=== PATIENT | female | born 1995 | race Hispanic/Latino ===

== ENCOUNTER → 2023-02-01 09:42 | Outpatient (CLI) | payer OTHER, SELFPAY ==
--- NOTE | 2023-02-01 09:43 | DI.US.S_ITS ---
PROCEDURE: US OB <= 14 WEEKS FETUS INDICATIONS: DATING AND VIABILITY OUTSIDE/PRIOR DATING DATA: Last menstrual period (LMP): 11/01/2022. LMP-based estimated date of delivery (GUZMAN): 08/08/2023. First dating scan (date and location): 02/01/2023. Estimated date of delivery (GUZMAN) from first dating scan: 09/06/2023. The calculations are made using the working GUZMAN of 09/06/2023. TECHNIQUE: Real-time scanning was performed of the fetus and maternal pelvic organs, with image documentation. Endovaginal scanning was also performed to better visualize the fetus and maternal ovaries. COMPARISON: None. FINDINGS: Embryo: Cedro-rump length 2.3 cm corresponds with a 9 week 0 day gestation. No subchorionic bleed Heart rate: 178 beats per minute Maternal organs: Ovaries show probable corpus luteum cyst on the right measuring 2.3 x 2.5 x 2.0 cm. Left ovary unremarkable. IMPRESSION: Single live intrauterine corresponds with a 9 week 0 day gestatio Approved by: Jake Roque M.D. on 02/01/2023 at 16:38 n
== END ==
PROVIDERS: Referring Provider Obstetrics & Gynecology; Visit Provider Obstetrics & Gynecology
DX: Z3A.09 9 weeks gestation of pregnancy; Z34.81 Encounter for supervision of other normal pregnancy, first trimester
CPT/HCPCS: 76801; 76830; 93975

== ENCOUNTER → 2023-02-08 15:19 | Outpatient (CLI) | payer OTHER, SELFPAY ==
[2023-02-08 16:02] LABS: Specimen Label NATERA
[2023-02-08 16:16] LABS: Add Manual Diff / Slide Review NO; Basophils Absolute Auto 0 /uL (0-100); Basophils Percent Auto 0.3 % (0-2); Eosinophils Absolute Auto 100 /uL (0-450); Eosinophils Percent Auto 0.9 % (2-4); Hematocrit 33.3 % (36-46); Hemoglobin 11.4 g/dL (12.0-16.0); Lymphocytes Absolute Auto 1800 /uL (1100-4500); Lymphocytes Percent Auto 27.5 % (25-40); Mean Corpuscular HGB Conc 34.2 % (30-36); Mean Corpuscular Hemoglobin 29.1 PG (26-34); Mean Corpuscular Volume 85.2 fL (80-100); Monocytes Absolute Auto 400 /uL (0-900); Monocytes Percent Auto 5.5 % (3-14); Neutrophils Absolute Auto 4300 /uL (1500-7000); Neutrophils Percent Auto 65.8 % (50-75); Platelet Count 233 X10^3/uL (150-400); Red Blood Cell Count 3.91 X10^6/uL (4.0-5.2); Red Cell Distribution Width 14.2 % (11.6-14.8); White Blood Cell Count 6.6 X10^3/uL (4.5-11.0)
[2023-02-08 17:00] LABS: Alanine Aminotransferase 14 IU/L (<35); Aspartate Aminotransferase 25 IU/L (14-36); BUN Creatinine Ratio 16.1 (6-22); Blood Urea Nitrogen 9 mg/dL (7-17); Estimated Glomerular Filt Rate > 60 mL/min (>60)
[2023-02-09 09:17] LABS: RPR Screen Non Reactive (Non Reactive); Varicella IgG Antibody 171 index (Immune >165)
[2023-02-11 15:15] LABS: Hepatitis B Surface Antigen NEGATIVE s/c (NEGATIVE)
[2023-02-11 15:26] LABS: HIV 1 & 2 Ab/Ag 4th Gen Combo NEGATIVE (NEGATIVE); Hep C Virus Ab w/Reflex Quant NEGATIVE s/c (NEGATIVE)
== END ==
PROVIDERS: Referring Provider Obstetrics & Gynecology; Visit Provider Obstetrics & Gynecology
DX: Z34.81 Encounter for supervision of other normal pregnancy, first trimester (principal)
CPT/HCPCS: 36415; 80055; 82565; 84450; 84460; 84520; 84550; 86787; 86803; 86850; 86900; 86901; 87077; 87086; 87186; 87389

== ENCOUNTER → 2023-03-08 09:42 | Outpatient (CLI) | payer OTHER, SELFPAY ==
[2023-03-15 15:24] LABS: AFP Value 12.2 ng/mL (.); Gest Age on Col Date 18.1 weeks (.); Gestational Age EDD (.); Insulin Dep Diabetes No (.); OSBR Risk 1IN 10000 (.); Results Report (.); Test Results *Screen Negative* (.)
== END ==
PROVIDERS: Referring Provider Specialist; Visit Provider Specialist
DX: Z34.82 Encounter for supervision of other normal pregnancy, second trimester (principal); Z3A.18 18 weeks gestation of pregnancy
CPT/HCPCS: 36415; 82105

== ENCOUNTER → 2023-04-18 17:01 | Outpatient (CLI) | payer OTHER, SELFPAY | PROVIDERS: Visit Provider Obstetrics & Gynecology | DX: R82.998 Other abnormal findings in urine (principal); R31.9 Hematuria, unspecified | CPT/HCPCS: 87077; 87086; 87186 ==

== ENCOUNTER → 2023-04-23 16:37 | Outpatient (CLI) | payer OTHER, SELFPAY ==
--- NOTE | 2023-04-23 16:39 | DI.US.S_ITS ---
PROCEDURE: US OB >= 14 WEEKS FETUS INDICATIONS: 20 WEEK ANATOMY OUTSIDE/PRIOR DATING DATA: Last menstrual period (LMP): 11/01/2022. LMP-based estimated date of delivery (GUZMAN): 08/08/2023. First dating scan (date and location): 02/01/2023. Estimated date of delivery (GUZMAN) from first dating scan: 09/06/2023 The calculations are made using the working GUZMAN of 09/06/2023. TECHNIQUE: Real-time scanning was performed of the fetus, with image documentation and biometric measurements. Endovaginal scanning: None COMPARISON: None. FINDINGS: General: A single living intrauterine gestation is present. Presentation: Cephalic. Placenta: Placental position is anterior , without previa. Amniotic fluid index: 11.4 cm, normal range is 5-24 cm. Single deepest vertical pocket is 3.9 cm. heart rate: 159 beats per minute. Maternal cervical canal: 3.8 cm long. Normal lower limit is 2.5 cm. biometrics: Biparietal diameter: 4.9 cm, 20 week 5 day Head circumference: 18.1 cm, 20 week 5 day Abdominal circumference: 15.6 cm, 20 week 6 day Femur length: 3.4 cm, 20 week 5 day Clinically estimated gestational age: 20 week 4 day Composite gestational age from present scan: 20 week 5 day Estimated weight and percentile: 378 g, 58 percentile Anatomic survey: Neuro: Ventricles are non-dilated at less than 10 mm. Cisterna magna is normal at 3-11 mm. Cerebellum is normal in size and morphology. Nuchal skin fold: Normal at less than 6 mm between 14-21 weeks gestational age. Face: Nose and lips, facial profile are normal. Spine: No evidence for spina bifida. Heart: 4-chambered heart is present, with normal ventricular outflow tracts. Diaphragm: Diaphragm is intact. Stomach: Left-sided stomach is present. Kidneys: No hydronephrosis. Normal is less than 5 mm in 2nd trimester, less than 7 mm in 3rd trimester. Cord: 3-vessel cord has orthotopic insertion. Bladder: Normal in size. Extremities: All 4 extremities identified. IMPRESSION: Single live intrauterine consistent with 20 week 5 day gestation by current ultrasound. Normal anatomic survey Approved by: Jake Roque M.D. on 04/24/2023 at 14:00
== END ==
PROVIDERS: Referring Provider Specialist; Visit Provider Specialist
DX: Z34.82 Encounter for supervision of other normal pregnancy, second trimester (principal); Z3A.20 20 weeks gestation of pregnancy
CPT/HCPCS: 76811; 76817

== ENCOUNTER → 2023-06-13 14:47 | Outpatient (CLI) | payer OTHER, SELFPAY ==
[2023-06-13 16:52] LABS: Hematocrit 33.6 % (36-46); Hemoglobin 11.5 g/dL (12.0-16.0)
[2023-06-13 17:25] LABS: GTT (PREG) 1 Hour PP 50gm Dose 61 mg/dL (76-139)
== END ==
PROVIDERS: Referring Provider Obstetrics & Gynecology; Visit Provider Obstetrics & Gynecology
DX: Z34.82 Encounter for supervision of other normal pregnancy, second trimester (principal); Z3A.26 26 weeks gestation of pregnancy; R82.998 Other abnormal findings in urine
CPT/HCPCS: 36415; 82950; 85014; 85018; 86850; 87086

== ENCOUNTER → 2023-08-09 10:23 | Outpatient (CLI) | payer OTHER, SELFPAY ==
[2023-08-10 08:43] LABS: Strep Grp B PCR NEG for Grp B Strep
== END ==
PROVIDERS: Visit Provider Student in an Organized Health Care Education/Training Program
DX: Z34.83 Encounter for supervision of other normal pregnancy, third trimester (principal); Z3A.36 36 weeks gestation of pregnancy
CPT/HCPCS: 87653

== ENCOUNTER → 2023-08-30 16:40 | Outpatient (CLI) | payer OTHER, SELFPAY | PROVIDERS: Visit Provider Obstetrics & Gynecology | DX: R82.998 Other abnormal findings in urine (principal) | CPT/HCPCS: 87086 ==

== ENCOUNTER 2023-09-02 19:30 | Inpatient (IN) | payer OTHER, SELFPAY ==
[2023-09-02 20:03] VITALS: BP 115/58
--- NOTE | 2023-09-02 20:19 | PM.OBHP.1 ---
OB HPI Date/Time Date of admission: 09/02/23 Date Patient Seen: 09/03/23 Time Patient Seen: 04:40 History of Present Condition Chief complaint: IUP, 39+3 wks, Rh Neg, GBS Neg, elective induction : 3 Para: 2 Estimated Date of Delivery: 09/06/23 Estimated Gestational Age (weeks): 39+3 Narrative: Shani Hsu is a 28 year old , admitted at 39+ 2 weeks gestational age for elective induction due to her her 's imminent deployment. Patient's course has been largely uneventful with solid early dating and appropriate milestones throughout. GBS is negative. Indications Indication for induction OB: other (Elective, due to patient 's imminent deployment) History of Present care: good care Dating criteria: LMP confirmed by 1st trimester US Ultrasounds: normal 1st trimester US and normal mid trimester US Obstetrical complications: none Medical complications: none Preadmission Labs Blood type: 0 (-) negative -: Antibody screen: negative (06/13/2023, prior to RhoGAM), GBS status: negative, HBsAG: negative, HIV: negative and RPR/VDLR: negative -: Chlamydia screen: not detected and Gonorrhea screen: not detected -: Rubella: immune and Varicella: immune HCT: 33.6 HCAB: negative PAP: Normal Quad screen: Normal (AFP testing negative) Cell-free DNA: Low risk female 1 hr GTT: 1 Prior (ies) History: x 2 Evaluation Evaluation Baseline heart rate: 145 Variability: Moderate (11-25) monitor accelerations: Present Monitor Decelerations: Absent Contraction Frequency (minutes): 6 Uterine Contraction Intensity: Mild Category of Tracing: Reactive Status: Category l Dilation (cm): 10 Effacement (%): 100 Dilation: Closed Effacement: >/=80% station: +2 Position of cervix: anterior Consistency: soft Mullen score: 10 PFSH Medical History (Updated 09/02/23 @ 11:23 by Wesley Harmon MD) PIH ( induced hypertension) Migraine Eczema Surgical History (Updated 01/31/23 @ 11:09 by Glo Beebe RN) No pertinent past surgical history Family History (Updated 01/31/23 @ 11:11 by Glo Beebe RN) Grandmother Diabetes mellitus Family/Other Diabetes mellitus Father Family estrangement Social History marital status: number of children: 2 household members: spouse and children lives independently: Yes caregiver/support person: Yes housing: house pets and animals: Yes (bird, dogs; manages bird cage) education level: college (associate's degree) occupational status: unemployed current occupational exposures/hazards: No special yana needs: No travel history: recent (domestic only) seatbelt use: always helmet use: Yes water heater temp set < 120 deg: Yes working smoke detector in home: Yes fire extinguisher in home: Yes carbon monox detector in home: Yes firearms in home: No do you feel safe at home: Yes Smoking Status: Never smoker second hand exposure: No alcohol intake: never substance use type: does not use during the past year weight has: increased > 10 lbs well-balanced diet: daily or most days daily servings fruits/ve-4 caffeine: Yes (rarely) Type(s) of exercise: walking frequency: daily duration: 15-30 minutes/day Meds Home Medications and Allergies Home Medications Medication Instructions Recorded Confirmed Type [id number] 400 mcg-om3 35 mg-dha 25 tab PO 01/31/23 08/30/23 History mg-epa 5 mg-fish oil chewable tablet sumatriptan succinate 50 mg tablet See Rx Instructions PO .COMPLEX 03/08/23 08/30/23 Rx Migraine #20 tabs Allergies Allergy/AdvReac Type Severity Reaction Status Date / Time No Known Drug Allergies Allergy Unverified 08/30/23 16:11 Review of Systems Review of Systems Narrative: Problem-specific ROS positives included in HPI OB Exam Vital signs Blood Pressure: 115/58 Pulse Rate: 81 Temperature: 97.0 F HENMT Head: normal to inspection, normocephalic and atraumatic Eyes General: appearance normal, both eyes and all related structures Resp Effort & Inspection: normal respiratory effort and able to speak in complete sentences Auscultation: clear to auscultation bilaterally Cardio Rate: regular rate Rhythm: regular rhythm Heart Sounds: S1 normal, S2 normal and no murmurs Extremities Lower extremity: Yes normal to inspection GI Inspection: normal to inspection Palpation: Yes soft and Yes no hepatosplenomegaly Uterus Location (Fundal Height): 38 Presentation: vertex Estimated Weight (lbs): 8 Objective Labs 09/02/23 20:30 Assessment and Plan Assessment and Plan Assessment and Plan narrative: ASSESSMENT 1. Intrauterine , 39+ 3 weeks gestational age 2. History of gestational hypertension with prior 3. Rh-negative status 4. GBS negative status PLAN 1. Admit for elective induction at patient request due to her 's eminent deployment 2. See admission orders
[2023-09-02 20:51] VITALS: BP 115/58; PULSE 81; TEMP 36.1
[2023-09-02 21:12] LABS: Add Manual Diff / Slide Review NO; Basophils Absolute Auto 0 /uL (0-100); Basophils Percent Auto 0.4 % (0-2); Eosinophils Absolute Auto 100 /uL (0-450); Hematocrit 30.7 % (36-46); Hemoglobin 10.6 g/dL (12.0-16.0); Lymphocytes Absolute Auto 1800 /uL (1100-4500); Lymphocytes Percent Auto 27.3 % (25-40); Mean Corpuscular HGB Conc 34.4 % (30-36); Mean Corpuscular Hemoglobin 28.8 PG (26-34); Mean Corpuscular Volume 83.8 fL (80-100); Monocytes Absolute Auto 500 /uL (0-900); Monocytes Percent Auto 6.8 % (3-14); Neutrophils Absolute Auto 4300 /uL (1500-7000); Neutrophils Percent Auto 64.5 % (50-75); Platelet Count 249 X10^3/uL (150-400); Red Blood Cell Count 3.67 X10^6/uL (4.0-5.2); White Blood Cell Count 6.6 X10^3/uL (4.5-11.0)
[2023-09-02] MEDS: fentaNYL 100 MCG/2 ML INJ 50 MCG IV (21:55)
[2023-09-02] MEDS: LACTATED RINGERS 1,000 ML 100 ML IV (22:27)
[2023-09-02] MEDS: OXYTOCIN PREMIX 30 UNIT/500 ML PLAST..BAG IV (22:35)
--- NOTE | 2023-09-03 02:48 | PM.AN.REGBLK ---
Regional Block Pre-procedure PMH/ROS narrative: term elective IOL, no medical or obstetric complications. BMI 39. ASA Class: II Labs: Hct 30.7 % (36-46) L 09/02/23 20:30 Plt Count 249 X10^3/uL (150-400) 09/02/23 20:30 Medications: Current Medications Generic Name Dose Route Start Last Admin Trade Name Freq PRN Reason Stop Dose Admin Calcium Carbonate 1,000 mg 09/02/23 19:47 Calcium Carbonate 500 Mg Tab PO Q4HR PRN Dyspepsia Carboprost Tromethamine 250 mcg 09/02/23 19:47 Carboprost 250 Mcg/Ml Ampul IM Q90M PRN Bleeding Fentanyl 50 mcg 09/02/23 19:47 09/02/23 21:55 Fentanyl 100 Mcg/2 Ml Inj IV 50 mcg Q1H PRN Administration Pain, Moderate (4-6) Oxytocin/Lactated Ringer's 30 unit in 500 mls @ 200 mls/hr 09/02/23 19:47 Oxytocin Premix IV CONT PRN Bleeding Protocol Tranexamic Acid 1,000 mg/ 100 mls @ 200 mls/hr 09/02/23 19:47 Sodium Chloride IV NOW PRN Bleeding Lactated Ringer's 1,000 mls @ 100 mls/hr 09/02/23 20:00 09/02/23 22:27 Lactated Ringers IV 100 mls/hr CONT CLAUDIA Administration Oxytocin/Lactated Ringer's 30 unit in 500 mls @ 1 mls/hr 09/02/23 21:45 09/02/23 22:35 Oxytocin Premix IV 1 milliunit/min TITRATE CLAUDIA 1 mls/hr Administration Protocol 1 MILLIUNIT/MIN Lidocaine HCl 20 ml 09/02/23 19:47 Lidocaine 1% 20 Ml INJ INTRA-OP PRN Post Delivery Methylergonovine Maleate 0.2 mg 09/02/23 19:47 Methylergonovine 0.2 Mg Tablet PO Q6HR PRN Heavy Bleeding Methylergonovine Maleate 0.2 mg 09/02/23 19:47 Methylergonovine 0.2 Mg/Ml Vial IM NOW PRN Bleeding Misoprostol 400 mcg 09/02/23 19:47 Misoprostol 200 Mcg Tablet SL NOW PRN Bleeding Misoprostol 50 mcg 09/02/23 20:00 Misoprostol 25 Mcg Tablet PO Q6H CLAUDIA Misoprostol 800 mcg 09/02/23 19:47 Misoprostol 200 Mcg Tablet KS NOW PRN Bleeding Naloxone HCl 0.2 mg 09/02/23 19:47 Naloxone 0.4 Mg/Ml Vial IV Q2MIN PRN Opiate Reversal Ondansetron HCl 4 mg 09/02/23 19:47 Ondansetron 4 Mg/2 Ml Inj IV Q4HR PRN Nausea And Vomiting Oxytocin 10 unit 09/02/23 19:47 Oxytocin 10 Unit/Ml Vial IM NOW PRN Bleeding Zolpidem Tartrate 5 mg 09/02/23 19:47 Zolpidem 5 Mg Tablet PO BEDTIME PRN Sleep Allergies: Allergies Allergy/AdvReac Type Severity Reaction Status Date / Time No Known Drug Allergies Allergy Unverified 08/30/23 16:11 Procedure Insertion date: 09/03/23 Insertion time: 03:08 Prep/Local: betadine x3 and 1% lidocaine Interspace: L3-4 Patient position: sitting Needle: 18 gauge Event 38 [employer] (CSE: 27g Pencan through Hustead, clear CSF, 1mL 0.25% MPF Bupiv) Loss of resistance with: saline MUKESH at (cm): 5 Catheter placed at SKIN (cm): 10 Catheter in SPACE (cm): 5 Insertion: No CSF, No Blood, No Paresthesia with insertion, No Paresthesia with injection and No Test dose reaction Initial Medications TEST DOSE time: 03:09 TEST DOSE: 1.5% lidocaine with epinephrine 1:200k (mL): 3 BOLUS DOSE time: 03:15 BOLUS DOSE (mL): 4 BOLUS DOSE med: other (infusate) Infusion INFUSION: 0.125% bupivacaine and with fentanyl 2 mcg/mL Initial rate (mL/hr): 8 Subsequent interventions: PCEA@8+4 Post-procedure Anesthesia date START: 09/03/23 Anesthesia time START: 02:52 Anesthesia date END: 09/03/23 Anesthesia time END: 06:03 Post-procedure Anesthesia Assessment: Yes CV function: HR/BP stable, Yes Resp function: RR/sat/airway adequate, Yes Post-op hydration adequate, Yes Pain control adequate, Yes Nausea & vomiting absent, Yes Temperature > 36 C, Yes Mental status appropriate and No Anesthesia complications
[2023-09-03] MEDS: LACTATED RINGERS 1,000 ML 100 ML IV (03:26)
--- NOTE | 2023-09-03 05:24 | P.PCNOB_ITS ---
Labor & Delivery Delivery date: 09/03/23 Intrapartal Events: None Cervical ripening method: none Induction method: per pitocin protocol Delivery monitor: external FHT and external uterine Route of delivery: Episiotomy description: None L&D Laceration Description: Superficial (Right labia) Estimated blood loss (mL): 100 Anesthesia Type: Epidural Complications: None Narrative: Following a 14 minute 2nd stage, the patient delivered spontaneously over an intact perineum, a viable and vigorous female from right occiput anterior position. Tight nuchal cord was noted and reduced after delivery of the baby. No shoulder dystocia was encountered and skin to skin contact was initiated immediately following delivery. Delayed cord clamping was performed and once the umbilical cord was doubly clamped and cut, cord blood sample was obtained for routine studies. The placenta was then easily delivered with gentle cord traction and suprapubic countertraction. Inspection of the placenta showed it to be intact with an eccentric insertion of a three-vessel cord. Intravenous Pitocin was initiated immediately upon delivery of the placenta and bleeding following delivery was minimized easily. Inspection of the perineum showed a very superficial and small abrasion of the right labia minora but otherwise no vaginal/introital obstetrical trauma was noted. Sponge, needle, and instrument counts were correct at the end of the delivery process which was well tolerated by both mother and . Hagerman Baby 1: Infant gender: Female Presentation: vertex Position: Right Occiput Anterior Placenta delivery description: Spontaneous Cord Vessel Description: 3 Vessels score (1 min): 7 score (5 min): 9 weight: 7 lb 12.517 oz Plan for aftercare: Routine care
[2023-09-03] MEDS: ACETAMINOPHEN 325 MG TABLET 650 MG PO (06:24)
[2023-09-03] MEDS: IBUPROFEN 600 MG TABLET PO ×2 (06:24→23:52)
[2023-09-03] MEDS: OXYTOCIN PREMIX 30 UNIT/500 ML PLAST..BAG 200 UNIT IV (06:59)
[2023-09-03] MEDS: RHO(D) IMMUNE GLOBULIN 1,500 UNIT SYRINGE 1500 UNIT IM (15:47)
[2023-09-03 16:09] LABS: Add Manual Diff / Slide Review NO; Basophils Absolute Auto 100 /uL (0-100); Basophils Percent Auto 0.7 % (0-2); Eosinophils Absolute Auto 0 /uL (0-450); Eosinophils Percent Auto 0.5 % (2-4); Hematocrit 34.3 % (36-46); Hemoglobin 11.3 g/dL (12.0-16.0); Lymphocytes Absolute Auto 2100 /uL (1100-4500); Lymphocytes Percent Auto 20.5 % (25-40); Mean Corpuscular HGB Conc 33.1 % (30-36); Mean Corpuscular Volume 84.6 fL (80-100); Monocytes Absolute Auto 700 /uL (0-900); Monocytes Percent Auto 6.8 % (3-14); Neutrophils Absolute Auto 7200 /uL (1500-7000); Neutrophils Percent Auto 71.5 % (50-75); Platelet Count 255 X10^3/uL (150-400); Red Blood Cell Count 4.05 X10^6/uL (4.0-5.2); Red Cell Distribution Width 15.1 % (11.6-14.8); White Blood Cell Count 10.1 X10^3/uL (4.5-11.0)
--- NOTE | 2023-09-03 17:28 | P.DS_ITS ---
Discharge Providers Provider Date of admission: 09/02/23 19:30 Discharge Date: 09/03/23 Primary care physician: CHRISTINE Araujo Consults: 09/02/23 19:47 Consult to Anesthesiology Urgent Comment: Consulting Provider: Wesley Harmon Reason for consultation: Epidural Has provider been notified: No 09/04/23 05:20 Consult to Pesticide Applicator Routine Comment: Discharge provider: Wesley Harmon MD Summary Hospital Course Date Patient Seen: 09/03/23 Time Patient Seen: 17:29 Diagnoses: Intrauterine gestation, 39+ 2 weeks gestational age, delivered by spontaneous vaginal Rh-negative status GBS negative status Hospital Course: The patient was admitted on the evening 09/02/2023 for cervical ripening and induction due to her 's imminent deployment. On admission the patient was found to be 5-6 cm and instead of cervical ripening, low-dose Pitocin was initiated and early on the morning of 09/03/2023, the patient delivered spontaneously a viable female with Apgars of 7/9, and a weight of 3530 g (7 lb 12.6 oz). Following delivery both mother and baby have done exceptionally well with the mother experiencing prompt return of bowel and bladder function, she is ambulating independently, tolerating regular diet, and her pain is well controlled with oral pain medications. She will be discharged at this time to home in an afebrile normotensive condition after counseling regarding precautionary symptoms, limitations activity, medications, and plans for follow-up which will be in 6 weeks. Medications at discharge will include resumption of all preadmission medications as well as [id number] Tylenol and/or ibuprofen as needed for pain relief. Peripartum Data Delivery Method: Natural Vaginal Laceration Description: Superficial (Right labial) Episiotomy description: None Procedures: Continuous lumbar epidural Spontaneous vaginal complications: none 1: Gender: Female Disposition of : home Status at Discharge Cognitive/behavioral status at discharge: oriented Functional status at discharge: independent ambulation Overall status at discharge: patient is progressing back to baseline Time Spent with Patient Time attestation: Total time spent providing and/or coordinating discharge services: Objective Labs 09/03/23 16:00 Labs: Laboratory Results - last 24 hr 09/02/23 09/03/23 20:30 16:00 WBC 6.6 10.1 D RBC 3.67 L 4.05 Hgb 10.6 L 11.3 L Hct 30.7 L 34.3 L MCV 83.8 84.6 MCH 28.8 28.0 MCHC 34.4 33.1 RDW 15.0 H 15.1 H Plt Count 249 255 Neut % (Auto) 64.5 71.5 Lymph % (Auto) 27.3 20.5 L [place] % (Auto) 6.8 6.8 Eos % (Auto) 1.0 L 0.5 L Baso % (Auto) 0.4 0.7 Neut # (Auto) 4300 7200 H Lymph # (Auto) 1800 2100 [place] # (Auto) 500 700 Eos # (Auto) 100 0 Baso # (Auto) 0 100 Blood Type O Negative Antibody Screen Negative Antibody Identification Cancelled Maternal Bleed Negative Exam Const General: cooperative and comfortable Nutritional Appearance: average body habitus Orientation: alert and oriented x3 HENMT Head: normal to inspection, atraumatic and abrasion Ears: hearing grossly normal bilaterally Face and sinus: face symmetric Eyes General: appearance normal, both eyes and all related structures Conjunctivae: conjunctivae normal Sclera: sclerae normal EOM: EOM intact bilaterally Neck Neck: normal visual inspection Resp Effort & Inspection: normal respiratory effort and able to speak in complete sentences Auscultation: clear to auscultation bilaterally Cardio Rate: regular rate Rhythm: regular rhythm Heart Sounds: S1 normal, S2 normal and no murmurs GI Inspection: normal to inspection Palpation: soft and no hepatosplenomegaly External Female Exam: other (No significant bleeding noted) Extrem General: no calf tenderness Psych Appearance: grossly normal Mental Status: mental status grossly normal Speech and Movement: speech and movement normal Mood: congruent mood Affect: normal affect Attitude: cooperative Thought Process: normal Thought Content: normal Judgment: judgment good Discharge Plan Discharge Plan Patient Disposition: Home Provider Discharge Comment: Please review the written instructions you received when you were discharged from the hospital. Your follow-up appointment will be scheduled for 6 weeks after delivery and I look forward to seeing you then. If however in the meanwhile, you have any issues, concerns, questions, please contact me either through the office phone at [phone], or via the patient portal. Discharge orders & Medications Prescriptions: Continued sumatriptan succinate 50 mg tablet See Rx Instructions PO .COMPLEX Qty: 20 0RF Rx Instructions: take 1 tab at onset of headache; if no relief may repeat 1 tab after at least 2 hrs; max = 4 tabs/24 hr PO Follow up/Referrals: Wesley Harmon MD [Physician] - ( Appt w/ Dr. Harmon: October 14 @ 9:15am) Discharge Health Status Multidrug resistant organism: No MDRO Diet/Activity/Treatments Diet: Diet as Tolerated Activity: As tolerated Other treatments: [id number] Tylenol and/or ibuprofen may used for pain relief. Cmoz-omz-[id number] stool softeners and/or MiraLax may be used as needed for constipation Skin/Wound/Dressing Care Report to your healthcare provider any signs of infection, such as:: chills, fever, increased pain, unusual drainage and unusual redness Dressing: N/A Visit Report/Discharge Packet Instructions: DI for Labor and Delivery, Vaginal , DI for and Nipple Soreness Stand Alone Forms: Discharge: Care Discharge Data Primary Care Provider: Link Qureshi
[2023-09-03 18:04] VITALS: BP 118/72; PULSE 85; RESP 16; TEMP 37.2
== END 2023-09-03 23:48 | disposition home or self-care (01) | DRG 807 ==
PROVIDERS: Admitting Provider Obstetrics & Gynecology; PCP Nurse Practitioner Family; Referring Provider Family Medicine; Visit Provider Family Medicine
DX: O80 Encounter for full-term uncomplicated delivery (principal); Z37.0 Single live birth; Z3A.39 39 weeks gestation of pregnancy
CPT/HCPCS: 36415; 59050; 59400; 85025; 85461; 86850; 86870; 86900; 86901; G0379; J2590; J2790; J3010

== ENCOUNTER → 2024-08-07 09:12 | Outpatient (CLI) | payer OTHER, SELFPAY ==
--- NOTE | 2024-08-07 09:13 | DI.US.S_ITS ---
PROCEDURE: US OB LIMITED INDICATIONS: confirm dating, late care OUTSIDE/PRIOR DATING DATA: Last menstrual period (LMP): 04/06/2024. LMP-based estimated date of delivery (GUZMAN): 01/11/2025. First dating scan (date and location): 08/07/2024. Estimated date of delivery (GZUMAN) from first dating scan: 01/10/2025. The calculations are made using the working GUZMAN of 01/10/2025. TECHNIQUE: Real-time scanning was performed of the fetuses, with image documentation and biometric measurements. Endovaginal scanning: No COMPARISON: None. FINDINGS: General: An intrauterine dichorionic-diamniotic twin is present, as evidenced by separate placentas, differing sexes, or an intervening membrane of greater than 2 mm. Amniotic fluid index (composite): 13.3 cm. Maternal cervical canal: 6.2 cm long. Normal lower limit is 2.5 cm. FETUS A: Fetus is located on the maternal left side, and is in breech presentation. Largest amniotic fluid pocket: 5.6 cm; normal range is 2-8 cm. Placental position is posterior , without previa. heart rate: 137 beats per minute. biometrics: Biparietal diameter: 4.0 cm, 18 week 1 day Head circumference: 14.3 cm, 17 week 4 day Abdominal circumference: 12.2 cm, 17 week 6 day Femur length: 2.4 cm, 17 week 2 day Clinically estimated gestational age: 17 week 4 day Composite gestational age from present scan: 17 week 5 day. Estimated weight and percentile: 201 g, 45 percentile. FETUS B: Fetus is located on the maternal right side, and is in breech presentation. Largest amniotic fluid pocket: 3.6 cm; normal range is 2-8 cm. Placental position is posterior , without previa. heart rate: 191 beats per minute. biometrics: Biparietal diameter: 3.9 cm, 17 week 6 day Head circumference: 14.0 cm, 17 week 2 day Abdominal circumference: 12.2 cm, 17 week 6 day Femur length: 2.3 cm, 16 week 5 day Clinically estimated gestational age: 17 week 4 day Composite gestational age from present scan: 17 week 3 day. Estimated weight and percentile: 191 g, 31 percentile. IMPRESSION: Twin consistent with 17 week gestation. Given the appearance of the intervening membrane, this is most likely a diamniotic dichorionic gestation although, the placentas are not clearly separable Approved by: Jake Roque M.D. on 08/07/2024 at 17:36
== END ==
PROVIDERS: PCP Nurse Practitioner Family; Referring Provider Obstetrics & Gynecology; Visit Provider Obstetrics & Gynecology
DX: O30.042 Twin pregnancy, dichorionic/diamniotic, second trimester (principal); Z3A.17 17 weeks gestation of pregnancy
CPT/HCPCS: 76812; 76815

== ENCOUNTER → 2024-08-14 08:43 | Outpatient (CLI) | payer OTHER, SELFPAY ==
[2024-08-14 09:53] LABS: Add Manual Diff / Slide Review NO; Basophils Absolute Auto 0 /uL (0-100); Basophils Percent Auto 0.2 % (0-2); Eosinophils Absolute Auto 100 /uL (0-450); Eosinophils Percent Auto 0.7 % (2-4); Hematocrit 32.2 % (36-46); Lymphocytes Absolute Auto 1500 /uL (1100-4500); Lymphocytes Percent Auto 17.8 % (25-40); Mean Corpuscular HGB Conc 34.2 % (30-36); Mean Corpuscular Hemoglobin 29.2 PG (26-34); Mean Corpuscular Volume 85.5 fL (80-100); Monocytes Absolute Auto 400 /uL (0-900); Monocytes Percent Auto 4.5 % (3-14); Neutrophils Absolute Auto 6600 /uL (1500-7000); Neutrophils Percent Auto 76.8 % (50-75); Platelet Count 283 X10^3/uL (150-400); Red Blood Cell Count 3.77 X10^6/uL (4.0-5.2); Red Cell Distribution Width 15.1 % (11.6-14.8); White Blood Cell Count 8.6 X10^3/uL (4.5-11.0)
[2024-08-14 10:07] LABS: Creatinine Urine Random 136.01 mg/dL; Protein (Total) Urine Random 9 mg/dL (0-12); Protein Creatinine Ratio Urine 0.06 GRAM/24H
[2024-08-14 10:14] LABS: Alanine Aminotransferase 15 IU/L (<35); Aspartate Aminotransferase 19 IU/L (14-36); BUN Creatinine Ratio 14.3 (6-22); Blood Urea Nitrogen 8 mg/dL (7-17); Estimated Glomerular Filt Rate > 60 mL/min (>60); Uric Acid 2.9 mg/dL (2.5-6.2)
[2024-08-14 10:53] LABS: Hepatitis B Surface Antigen NEGATIVE s/c (NEGATIVE); Rubella Antibody IgG 65.4 IU/mL (>15)
[2024-08-14 11:08] LABS: HIV 1 & 2 Ab/Ag 4th Gen Combo NEGATIVE (NEGATIVE); Hep C Virus Ab w/Reflex Quant NEGATIVE s/c (NEGATIVE)
[2024-08-15 04:36] LABS: RPR Screen Non Reactive (Non Reactive)
[2024-08-15 10:36] LABS: Varicella IgG Antibody Non Reactive (Non Reactive)
== END ==
LOC: LAB 08:44
PROVIDERS: PCP Nurse Practitioner Family; Referring Provider Obstetrics & Gynecology; Visit Provider Obstetrics & Gynecology
DX: Z34.80 Encounter for supervision of other normal pregnancy, unspecified trimester (principal); Z87.59 Personal history of other complications of pregnancy, childbirth and the puerperium
CPT/HCPCS: 36415; 80055; 82565; 82570; 84156; 84450; 84460; 84520; 84550; 86787; 86803; 86850; 86900; 86901; 87086; 87389

== ENCOUNTER → 2024-10-02 07:00 | Outpatient (CLI) | payer OTHER, SELFPAY ==
[2024-10-02 09:09] LABS: Hematocrit 32.2 % (36-46); Hemoglobin 11.1 g/dL (12.0-16.0)
[2024-10-02 09:24] LABS: GTT (PREG) 1 Hour PP 50gm Dose 119 mg/dL (76-139)
== END ==
PROVIDERS: PCP Nurse Practitioner Family; Referring Provider Obstetrics & Gynecology; Visit Provider Obstetrics & Gynecology
DX: Z34.82 Encounter for supervision of other normal pregnancy, second trimester (principal); Z3A.26 26 weeks gestation of pregnancy
CPT/HCPCS: 36415; 82950; 85014; 85018; 86850

== ENCOUNTER 2024-11-17 08:57 | Outpatient (CLI) | payer OTHER, SELFPAY ==
--- NOTE | 2024-11-17 09:51 | PM.OBTRLD ---
Visit Information Visit Information Date of evaluation: 11/17/24 Primary OB Provider: María Elena Singh On-call OB Provider: Meghna Sainz Reason for Evaluation: Yes non-stress test Comments/Additional reasons for admission: di/di monozygotic TIUP Vital Signs Vital Signs: maternal VSS/afebrile, no mild or severe range BP readings PFSH Medical History (Updated 08/14/24 @ 09:07 by María Elena Singh MD) Dichorionic diamniotic twin gestation PIH ( induced hypertension) Eczema Surgical History (Updated 01/31/23 @ 11:09 by Glo Beebe, RN) No pertinent past surgical history Family History (Updated 08/05/24 @ 14:37 by Glo Beebe, RN) Grandmother Diabetes mellitus Uncle Diabetes mellitus Father Family estrangement Social History marital status: number of children: 3 household members: spouse and children lives independently: Yes caregiver/support person: Yes housing: house pets and animals: Yes (dog) education level: college (associate's degree) occupational status: unemployed current occupational exposures/hazards: No special yana needs: No travel history: recent (domestic only) seatbelt use: always helmet use: Yes water heater temp set < 120 deg: Yes working smoke detector in home: Yes fire extinguisher in home: Yes carbon monox detector in home: Yes firearms in home: No do you feel safe at home: Yes second hand exposure: No alcohol intake: never substance use type: does not use during the past year weight has: other (youngest <6 months at time of conception) well-balanced diet: about half the time daily servings fruits/ve-4 caffeine: Yes (rarely) Type(s) of exercise: walking frequency: daily duration: 30-45 minutes/day Evaluation Evaluation Comments: Baby A: 140bpm, +accels, no decels, mod variability - cat 1 Baby B: 135bpm, + accels, no decels, mod variability - cat 1 Diagnosis, Plan/Disposition Plan/Disposition Plan: continue weekly NST as scheduled strict PIH/FM/PTL precautions reviewed OB Disposition: home
== END 2024-11-17 09:56 | disposition home or self-care (01) ==
LOC: LABOR 09:12 → OB 17:19
PROVIDERS: PCP Nurse Practitioner Family; Referring Provider Obstetrics & Gynecology; Visit Provider Obstetrics & Gynecology
DX: O30.043 Twin pregnancy, dichorionic/diamniotic, third trimester (principal); Z3A.32 32 weeks gestation of pregnancy
CPT/HCPCS: 59025; G0378; G0379

== ENCOUNTER 2024-11-24 08:54 | Outpatient (CLI) | payer OTHER, SELFPAY | END 2024-11-24 09:49 | disposition home or self-care (01) | LOC: LABOR 09:24 → OB 10:48 | PROVIDERS: PCP Nurse Practitioner Family; Referring Provider Obstetrics & Gynecology; Visit Provider Obstetrics & Gynecology | DX: O30.003 Twin pregnancy, unspecified number of placenta and unspecified number of amniotic sacs, third trimester (principal); Z3A.33 33 weeks gestation of pregnancy | CPT/HCPCS: 59025; G0378; G0379 ==

== ENCOUNTER 2024-11-30 09:19 | Outpatient (CLI) | payer OTHER, SELFPAY | END 2024-11-30 10:20 | disposition home or self-care (01) | LOC: LABOR 09:52 → OB 13:45 | PROVIDERS: PCP Nurse Practitioner Family; Referring Provider Obstetrics & Gynecology; Visit Provider Obstetrics & Gynecology | DX: O30.003 Twin pregnancy, unspecified number of placenta and unspecified number of amniotic sacs, third trimester (principal); Z3A.34 34 weeks gestation of pregnancy | CPT/HCPCS: 59025; G0378; G0379 ==

== ENCOUNTER 2024-12-03 08:51 | Outpatient (CLI) | payer OTHER, SELFPAY | END 2024-12-03 09:38 | disposition home or self-care (01) | LOC: LABOR 09:03 → OB 10:09 | PROVIDERS: PCP Nurse Practitioner Family; Referring Provider Obstetrics & Gynecology; Visit Provider Obstetrics & Gynecology | DX: O30.003 Twin pregnancy, unspecified number of placenta and unspecified number of amniotic sacs, third trimester (principal); Z3A.34 34 weeks gestation of pregnancy | CPT/HCPCS: 59025; G0378; G0379 ==

== ENCOUNTER → 2024-12-08 08:23 | Outpatient (CLI) | payer OTHER, SELFPAY ==
[2024-12-09 12:28] LABS: Strep Grp B PCR POS for Grp B Strep
== END ==
PROVIDERS: PCP Nurse Practitioner Family; Visit Provider Obstetrics & Gynecology
DX: Z34.83 Encounter for supervision of other normal pregnancy, third trimester (principal)
CPT/HCPCS: 87653

== ENCOUNTER 2024-12-08 08:32 | Outpatient (CLI) | payer OTHER, SELFPAY | END 2024-12-08 09:19 | disposition home or self-care (01) | LOC: LABOR 08:48 → OB 12:16 | PROVIDERS: PCP Nurse Practitioner Family; Referring Provider Obstetrics & Gynecology; Visit Provider Obstetrics & Gynecology | DX: O30.003 Twin pregnancy, unspecified number of placenta and unspecified number of amniotic sacs, third trimester (principal); Z3A.35 35 weeks gestation of pregnancy | CPT/HCPCS: 59025; 87653; G0378; G0379 ==

== ENCOUNTER 2024-12-10 08:53 | Outpatient (CLI) | payer OTHER, SELFPAY | END 2024-12-10 09:48 | disposition home or self-care (01) | LOC: LABOR 09:41 → OB 13:19 | PROVIDERS: PCP Nurse Practitioner Family; Referring Provider Obstetrics & Gynecology; Visit Provider Obstetrics & Gynecology | DX: O30.003 Twin pregnancy, unspecified number of placenta and unspecified number of amniotic sacs, third trimester (principal); Z3A.35 35 weeks gestation of pregnancy | CPT/HCPCS: 59025; G0378; G0379 ==

== ENCOUNTER 2024-12-15 08:44 | Outpatient (CLI) | payer OTHER, SELFPAY | END 2024-12-15 09:35 | disposition home or self-care (01) | LOC: OB 13:27 | PROVIDERS: PCP Nurse Practitioner Family; Referring Provider Obstetrics & Gynecology; Visit Provider Obstetrics & Gynecology | DX: O30.003 Twin pregnancy, unspecified number of placenta and unspecified number of amniotic sacs, third trimester (principal); Z3A.36 36 weeks gestation of pregnancy | CPT/HCPCS: 59025; G0378; G0379 ==

== ENCOUNTER 2024-12-17 11:16 | Outpatient (CLI) | payer OTHER, SELFPAY ==
--- NOTE | 2024-12-17 12:57 | PM.OBTRLD ---
Visit Information Visit Information Date of evaluation: 12/17/24 Primary OB Provider: María Elena Singh On-call OB Provider: Cely Beyer Reason for Evaluation: Yes non-stress test non-stress test reason: other (twins) PFSH Medical History (Updated 08/14/24 @ 09:07 by María Elena Singh MD) Dichorionic diamniotic twin gestation PIH ( induced hypertension) Eczema Surgical History (Updated 01/31/23 @ 11:09 by Glo Beebe, RN) No pertinent past surgical history Family History (Updated 08/05/24 @ 14:37 by Glo Beebe, RN) Grandmother Diabetes mellitus Uncle Diabetes mellitus Father Family estrangement Social History marital status: number of children: 3 household members: spouse and children lives independently: Yes caregiver/support person: Yes housing: house pets and animals: Yes (dog) education level: college (associate's degree) occupational status: unemployed current occupational exposures/hazards: No special yana needs: No travel history: recent (domestic only) seatbelt use: always helmet use: Yes water heater temp set < 120 deg: Yes working smoke detector in home: Yes fire extinguisher in home: Yes carbon monox detector in home: Yes firearms in home: No do you feel safe at home: Yes second hand exposure: No alcohol intake: never substance use type: does not use during the past year weight has: other (youngest <6 months at time of conception) well-balanced diet: about half the time daily servings fruits/ve-4 caffeine: Yes (rarely) Type(s) of exercise: walking frequency: daily duration: 30-45 minutes/day Evaluation Evaluation Baseline heart rate: 135 Variability: Moderate (6-25) monitor accelerations: Present Monitor Decelerations: Absent Category of Tracing: Reactive Comments: B 145 mod variability, accels present, no decels, Reactive Diagnosis, Plan/Disposition Plan/Disposition Plan: Assessment: Twin gestation at 36+4 wks gestation Reactive NST x 2 Plan: Scheduled for induction next week OB Disposition: home
== END 2024-12-17 12:20 | disposition home or self-care (01) ==
LOC: LABOR 12:09 → OB 13:37
PROVIDERS: PCP Nurse Practitioner Family; Referring Provider Obstetrics & Gynecology; Visit Provider Obstetrics & Gynecology
DX: O30.003 Twin pregnancy, unspecified number of placenta and unspecified number of amniotic sacs, third trimester (principal); Z3A.36 36 weeks gestation of pregnancy
CPT/HCPCS: 59025; G0378; G0379

== ENCOUNTER 2024-12-21 05:43 | Inpatient (IN) | payer OTHER, SELFPAY ==
[2024-12-21] MEDS: LACTATED RINGERS 1,000 ML 100 ML IV ×2 (06:40→09:47)
[2024-12-21 07:15] LABS: Add Manual Diff / Slide Review NO; Hematocrit 31.8 % (36-46); Hemoglobin 10.9 g/dL (12.0-16.0); Lymphocytes Absolute Auto 1700 /uL (1100-4500); Mean Corpuscular HGB Conc 34.2 % (30-36); Mean Corpuscular Hemoglobin 29.0 PG (26-34); Mean Corpuscular Volume 84.7 fL (80-100); Platelet Count 241 X10^3/uL (150-400)
[2024-12-21] MEDS: OXYTOCIN PREMIX 30 UNIT/500 ML PLAST..BAG IV (07:28)
[2024-12-21] MEDS: AMPICILLIN 2,000 MG in SODIUM CHLORIDE 0.9% 100 ML 200 MG IV (07:29)
[2024-12-21 07:31] VITALS: BP 111/55
--- NOTE | 2024-12-21 08:14 | PM.OBHP.IH.1 ---
OB HPI Date/Time Date of admission: 12/21/24 Date Patient Seen: 12/21/24 Time Patient Seen: 07:00 History of Present Condition Chief complaint: augmentation of labor at term GUZMAN Calculator Estimated Delivery Date Method Current WG Current Estimate 01/10/25 LMP (Certain) 37w 1d # 2 Estimated Gestational Age (weeks): 37.1 : 4 Para: 3 Narrative: 29y at 37w1d d=17wk US with mono/di TIUP presents for scheduled IOL at term per MFM recommendations. Patient states she is feeling well, notes persistent regular mild contractions for the last 24h, good FMx2. Denies VB, LOF, dysuria. OBHx notable for h/o prior x3. course notable for short interval (youngest daughter 14mos), co-management with MFM throughout , +GBS. Per MFM patient is cleared for vaginal delivery unless other obstetrical indication for . Plan of care reviewed including detailed discussion of internal pedalic version of second twin, delivery in OR in jewish of need to convert to . Patient and partner verbalized understanding. care: good care (late entry at 18wga, short interval ) Dating criteria OB: LMP confirmed by 2nd trimester US Ultrasounds: normal mid trimester US Obstetrical complications: other (mono/di TIUP) Indications Indication for induction OB: other Preadmission Labs Last OB Lab Results: Blood Type O Negative Today, 06:35 Antibody Screen Negative Today, 06:35 Hct, (36-46) 31.8 % L Today, 06:35 Hgb, (12.0-16.0) 10.9 g/dL L Today, 06:35 Hep Bs Antigen, (NEGATIVE) Negative s/c 08/14/24, 08:59 Hepatitis C Antibody, (NEGATIVE) Negative s/c 08/14/24, 08:59 Rubella Antibody, (>15) 65.4 IU/mL 08/14/24, 08:59 VZV IgG Antibody, (Non Reactive) Non reactive 08/14/24, 08:59 Glucose 1 Hr 50 gm, (76-139) 119 mg/dL 10/02/24, 07:43 Group B Strep (PCR) Pos for grp b strep H 12/08/24, 08:23 -: Chlamydia screen: negative, Gonorrhea screen: negative and Urine: negative -: PAP smear: Normal Genetic Screens: Quad screen: Normal and Alpha-fetoprotein: Normal External Labs -: Urine: negative Prior (ies) Past Pregnancies Del. Date GA/Weeks Labor Lgth Wt Sex Route Outcome Anesthesia Place Delv Breastfeed Preg Comp Name 03/14/16 40.2 4 8 lb 3 oz Female vaginal live - full term [place], [place] 1 year none [place] 01/19/19 39.6 15 8 lb 9 oz Female vaginal live - full term [place], [place] 6 months induced hyper- [place] 09/03/23 39.2 5 7 lb 13 oz Female vaginal live - full term epidural IH 5 months Jinny Hx # Term Pregnancies: 4 Number of Living Children: 3 Evaluation Evaluation Baseline heart rate: 140 Variability: Moderate (6-25) Monitor Decelerations: Absent Contraction Frequency (minutes): 5 Uterine Contraction Intensity: Mild Category of Tracing: Reactive Status: Category l Dilation (cm): 4 Effacement (%): 70 Dilation: 3-4 cm Effacement: 60-70% station: -3 Position of cervix: mid Consistency: soft Mullen score: 7 PFSH Medical History (Updated 08/14/24 @ 09:07 by María Elena Singh MD) Dichorionic diamniotic twin gestation PIH ( induced hypertension) Eczema Surgical History (Updated 01/31/23 @ 11:09 by Glo Beebe RN) No pertinent past surgical history Family History (Updated 08/05/24 @ 14:37 by Glo Beebe RN) Grandmother Diabetes mellitus Uncle Diabetes mellitus Father Family estrangement Social History marital status: number of children: 3 household members: spouse and children lives independently: Yes caregiver/support person: Yes housing: house pets and animals: Yes (dog) education level: college (associate's degree) occupational status: unemployed current occupational exposures/hazards: No special yana needs: No travel history: recent (domestic only) seatbelt use: always helmet use: Yes water heater temp set < 120 deg: Yes working smoke detector in home: Yes fire extinguisher in home: Yes carbon monox detector in home: Yes firearms in home: No do you feel safe at home: Yes Smoking Status: Never smoker second hand exposure: No alcohol intake: never substance use type: does not use during the past year weight has: other (youngest <6 months at time of conception) well-balanced diet: about half the time daily servings fruits/ve-4 caffeine: Yes (rarely) Type(s) of exercise: walking frequency: daily duration: 30-45 minutes/day Meds Home Medications and Allergies Home Medications ?Medication ?Instructions ?Recorded ?Confirmed ?Type [id number] 400 mcg-om3 35 mg-dha 25 1 tab PO DAILY 08/05/24 12/21/24 History mg-epa 5 mg-fish oil chewable tablet ascorbic acid (vitamin C) 500 mg 500 mg PO DAILY 08/05/24 12/21/24 History tablet ferrous gluconate 240 mg (27 mg 240 mg PO DAILY 08/05/24 12/21/24 History iron) tablet (Ferate) aspirin 81 mg chewable tablet 162 mg (2 x 81 mg) PO DAILY #90 08/14/24 12/21/24 Rx tabs Allergies Allergy/AdvReac Type Severity Reaction Status Date / Time No Known Drug Allergies Allergy Verified 12/21/24 07:04 Review of Systems Review of Systems ROS: Yes All systems reviewed with the patient and are negative except as otherwise documented OB Exam Vital signs Blood Pressure: 111/62 Pulse Rate: 97 Respiratory Rate: 16 Temperature: 97.9 F HENMT Head: normal to inspection Resp Effort & Inspection: normal respiratory effort and able to speak in complete sentences Cardio Rate: regular rate Extremities Lower extremity: Yes normal to inspection and edema (+1 bilat) GI Inspection: normal to inspection Palpation: Yes soft Other: gravid, roby cephalic/transverse External Female Exam: Yes normal external appearance Objective Labs 12/21/24 06:35 Labs: Laboratory Results - last 24 hr 12/21/24 06:35 WBC 8.4 RBC 3.75 L Hgb 10.9 L Hct 31.8 L MCV 84.7 MCH 29.0 MCHC 34.2 RDW 15.5 H Plt Count 241 Neut % (Auto) 73.1 Lymph % (Auto) 20.3 L Banks % (Auto) 5.4 Eos % (Auto) 0.8 L Baso % (Auto) 0.4 Neut # (Auto) 6100 Lymph # (Auto) 1700 Banks # (Auto) 500 Eos # (Auto) 100 Baso # (Auto) 0 Blood Type O Negative Antibody Screen Negative Assessment and Plan Assessment and Plan Assessment and Plan narrative: 29yo at 37w1d with mono/di TIUP presents for scheduled IOL at term Banks/di TIUP initially believed to be di/di TIUP, monozygosity confirmed per cfDNA co-mgmt with MFM throughout , recommendation for vaginal delivery at 37wga without evidence of significant growth discordance SVE 4/70/-3 on admission, start IV pitocin for augmentation IV amp for +GBS early epidural planned, anticipate AROM for further augmentation once in situ planned internal pedalic version of second twin, delivery in OR in jewish of need to convert to delivery 2 peripheral IV access, all uterotonics to be available in room at time of delivery including Caridad Patient is consented for vaginal delivery, vaginal operative delivery, internal pedalic version of second twin, delivery as well as transfusion of blood products as medically indicated anticipate Time-Based Coding :: [TOTAL MINUTES] spent with patient and on the chart (including review of chart, obtaining history, exam, reviewing outside data, placing orders, documenting exam and treatment plan, and counseling patient) on [DATE].
[2024-12-21 08:29] VITALS: BP 111/62; PULSE 97; RESP 16; TEMP 36.6
--- NOTE | 2024-12-21 10:32 | PM.AN.REGBLK ---
Regional Block Pre-procedure Procedure: Continuous Lumbar Epidural for L&D (with dural puncture) Attending OB provider: María Elena Singh PMH/ROS narrative: 29yo with di/di twins in labor requesting epidural. See pre-anesthesia evaluation for further details. ASA Class: III Labs: Hct 31.8 % (36-46) L 12/21/24 06:35 Plt Count 241 X10^3/uL (150-400) 12/21/24 06:35 Medications: Current Medications Generic Name Dose Route Start Last Admin Trade Name Freq PRN Reason Stop Dose Admin Calcium Carbonate 1,000 mg 12/21/24 07:02 Calcium Carbonate 500 Mg Tab PO Q2HR PRN Dyspepsia Carboprost Tromethamine 250 mcg 12/21/24 07:02 Carboprost 250 Mcg/Ml Ampul IM Q90M PRN Bleeding Diphenhydramine HCl 25 mg 12/21/24 10:30 Diphenhydramine 50 Mg/Ml Vial IV Q10M PRN Pruritis Ephedrine Sulfate 10 mg 12/21/24 10:30 Ephedrine 50 Mg/Ml Vial IV Q5M PRN Blood pressure decrease more than 20% of baseline. Lactated Ringer's 1,000 mls @ 100 mls/hr 12/21/24 06:40 12/21/24 09:47 Lactated Ringers IV 100 mls/hr CONT CLAUDIA Administration Lactated Ringer's 1,000 mls @ 100 mls/hr 12/21/24 07:15 Lactated Ringers IV 12/21/24 17:14 CONT CLAUDIA Oxytocin/Lactated Ringer's 30 unit in 500 mls @ 200 mls/hr 12/21/24 07:02 Oxytocin Premix IV CONT PRN Bleeding Protocol Tranexamic Acid 1,000 mg/ 100 mls @ 600 mls/hr 12/21/24 07:02 Sodium Chloride IV NOW PRN Bleeding Oxytocin/Lactated Ringer's 30 unit in 500 mls @ 2 mls/hr 12/21/24 07:15 12/21/24 07:28 Oxytocin Premix IV 2 milliunit/min TITRATE CLAUDIA 2 mls/hr Protocol Administration 2 MILLIUNIT/MIN Ampicillin Sodium 1,000 mg/ 100 mls @ 200 mls/hr 12/21/24 11:30 Sodium Chloride IV Q4H CLAUDIA FENT 2MCG/ML BUPIV 0.125% EPI 200 mcg in 100 mls @ 6 mls/hr 12/21/24 10:30 Fentanyl/Bupiv/Ns 2mcg/Ml - 0.125% EPIDURAL CONT CLAUDIA Lidocaine HCl 20 ml 12/21/24 07:02 Lidocaine 1% 20 Ml INJ INTRA-OP PRN Post Delivery Methylergonovine Maleate 0.2 mg 12/21/24 07:02 Methylergonovine 0.2 Mg Tablet PO Q6HR PRN Heavy Bleeding Methylergonovine Maleate 0.2 mg 12/21/24 07:02 Methylergonovine 0.2 Mg/Ml Vial IM NOW PRN Bleeding Metoclopramide HCl 10 mg 12/21/24 10:31 Metoclopramide 10 Mg/2 Ml Inj IV 12/22/24 10:32 Q4H PRN Nausea Mineral Oil 30 ml 12/21/24 07:02 Mineral Oil 30 Ml Udc TOP PRN PRN Version Misoprostol 800 mcg 12/21/24 07:02 Misoprostol 200 Mcg Tablet HI NOW PRN Bleeding Misoprostol 400 mcg 12/21/24 07:02 Misoprostol 200 Mcg Tablet SL NOW PRN Bleeding Nalbuphine HCl 2.5 mg 12/21/24 10:30 Nalbuphine 20 Mg/Ml Ampul IV Q10M PRN Pruritis Naloxone HCl 0.2 mg 12/21/24 07:02 Naloxone 0.4 Mg/Ml Vial IV Q2MIN PRN Opiate Reversal Ondansetron HCl 4 mg 12/21/24 07:02 Ondansetron 4 Mg/2 Ml Inj IV Q4HR PRN Nausea And Vomiting Ondansetron HCl 4 mg 12/21/24 10:31 Ondansetron 4 Mg/2 Ml Inj IV 12/22/24 10:32 Q6HR PRN Nausea Oxytocin 10 unit 12/21/24 07:02 Oxytocin 10 Unit/Ml Vial IM NOW PRN Bleeding Allergies: Allergies Allergy/AdvReac Type Severity Reaction Status Date / Time No Known Drug Allergies Allergy Verified 12/21/24 07:04 Procedure Insertion date: 12/21/24 Insertion time: 09:13 Prep/Local: 1% lidocaine (Chloraprep) Interspace: L3-4 Patient position: sitting Needle: 18 gauge [employer] (with 25g pencil-point spinal needle for dural puncture) Loss of resistance with: saline MUKESH at (cm): 5 Catheter placed at SKIN (cm): 13 Catheter in SPACE (cm): 8 Insertion: No CSF, No Blood, No Paresthesia with insertion, No Paresthesia with injection and No Test dose reaction Initial Medications TEST DOSE time: 09:14 TEST DOSE: 1.5% lidocaine with epinephrine 1:200k (mL): 3 BOLUS DOSE time: 09:15 BOLUS DOSE (mL): 2 BOLUS DOSE med: other (Same as test dose) Infusion INFUSION: 0.125% bupivacaine and with fentanyl 2 mcg/mL Initial rate (mL/hr): 8 Subsequent interventions: Epidural pump started at 09:30. Pt reports contraction pain 3/10, down from 8-9/10. Able to move BLE. Pt moved to OR 1 for twin delivery ~14:20; no Anesthesia provider present. Baby A born 14:41. baby B born 14:45. Post-procedure Anesthesia date START: 12/21/24 Anesthesia time START: 08:58 Anesthesia date END: 12/21/24 Anesthesia time END: 14:45 Post-procedure Anesthesia Assessment: Yes CV function: HR/BP stable, Yes Resp function: RR/sat/airway adequate, Yes Post-op hydration adequate, Yes Pain control adequate, Yes Nausea & vomiting absent, Yes Temperature > 36 C, Yes Mental status appropriate and No Anesthesia complications
[2024-12-21] MEDS: AMPICILLIN 1,000 MG in SODIUM CHLORIDE 0.9% 100 ML 200 MG IV (12:58)
--- NOTE | 2024-12-21 15:22 | PM.OBPRVD ---
Events: Other (IOL at 27w1d, mono/di TIUP) Labor & Delivery Delivery date: 12/21/24 Delivery Time: 14:41 Intrapartal Events: None Cervical ripening method: none Induction method: per pitocin protocol Delivery augmentation: rupture of membranes Delivery monitor: external FHT Route of delivery: Episiotomy description: None L&D Laceration Description: None Estimated blood loss (mL): 200 Anesthesia Type: Epidural Complications: none Narrative: Pt notified RN of sensation of rectal pressure, SVE C/C/+2. Provider broke scrub from OR and presented to bedside, repeat SVE with same cervical dilation and decision made to proceed to OR for delivery as planned, Dr. Cornelius called and present at bedside to assist with US as needed as well as in worship of conversion to . Continuous CEFM throughout and reassuring, audible early decelerations with contractions in setting of low station. Patient placed in dorsal lithotomy position and with expulsive efforts rapid delivery of baby A in cephalic presentation, OT position with immediate restitution to OA, loose nuchal cord x1 reduced. Gentle downward traction applied with rapid delivery of posterior shoulder and body; placed on maternal abdomen. Provider then reached inside the uterus and palpated lower extremity of baby B. Holding the lower extremity aminotomy was performed with return of clear fluid. The second lower extremity was palpated and under gentle traction baby B was delivered in footling breech presentation to the level of the mid scapula. Attempt to reduce the RUE unsuccessful due to swimmer's position; thorax rotated 180 degrees, LUE splinted and reduced and delivered, thorax rotated 90 degrees with spontaneous delivery of RUE and head. placed on maternal abdomen and stimulated. Cord of baby B marked with ring forceps, baby B with curved hemostat. Spontaneous delivery of intact placenta <2min from delivery of baby B, appearance that of monochorion with dividing amniotic membrane and will send to pathology. Fundal massage noted excellent uterine tone, 1000mg misoprostol placed per rectum for further PPH prophylaxis. No complications. [place] Baby 1: gender: Female Presentation: vertex Position: Left Occiput Transverse Placenta delivery description: Spontaneous Cord Vessel Description: 3 Vessels and Nuchal Cord (x1) score (1 min): 7 score (5 min): 9 2: gender: Female Presentation: breech Placenta delivery description: Spontaneous Cord Vessel Description: 3 Vessels Narrative: baby A - delivered at 1441 baby B - delivered at 1445 Plan for aftercare: Routine care
--- NOTE | 2024-12-21 15:40 | PATH_ITS ---
[facility] Accession Number: [id number] No. of containers..01 Tissue . 01 Material submitted: . placenta - PLACENTA . 01 Clinical history: . PER ATTACHMENT: PLACENTA- 37 WEEK- TWINS . 01 Diagnosis: TWIN PLACENTA, VAGINAL DELIVERY: Diamniotic-dichorionic twin placenta with the following: Twin A membranes with no evidence of chorioamnionitis. Three vessel umbilical cord with no evidence of funisitis. Chorionic villi with maturation appropriate for term gestation. . Twin B membranes with no evidence of chorioamnionitis. Three vessel umbilical cord with no evidence of funisitis. Chorionic villi with maturation appropriate for term gestation. [facility] 12/23/2024 1638 Local . 01 Comment: As part of routine quality supervisor, Dr. Cardenas has reviewed the dividing membrane section, and agrees with the impression of a diamniotic-dichorionic twin placenta. . 01 Electronically signed: . Leif De La O MD, PhD, Pathologist NPI- [id number] . 01 Gross description: . Received in formalin with two identifiers and no site on jar, is a fused twin placenta with a trimmed weight of 768 grams and measuring 21.9 x 19.6 x 2.6 cm. The dividing membranes are centrally located between the two placentas. There is a single attached plastic clamp with no designation per the requisition and arbitrarily designated umbilical cord A and two attached plastic clamps arbitrarily designated umbilical cord B. The fused twin placenta has a discoid appearance with cord A inserting marginally. Cord A measures 39.2 cm in length and ranges from 0.7 to 2.3 cm in diameter with thickening near the end of the cord adjacent to the clamp. The cord has a leftward coil with an index of approximately 2 twists per 5 cm and sectioning reveals unremarkable trivascular architecture with no knots or lesions identified. The external membranes surrounding side A are pink-monahan and translucent with no thickening or lesions identified. The dividing membranes are monahan and translucent with no discoloration or thickening identified. The amnion on side B is partially from the dividing membrane. . Umbilical cord B inserts velamentously with vessels identified within the membrane inserting 2.0 cm away from the nearest disc edge. The cord measures 39.7 cm in length and ranging from 0.9 to 2.8 cm in diameter with clots thickening near the end. The cord has a leftward coil with an index of approximately 1 twist per 5 cm. The external membranes are monahan and translucent with no thickening identified. All membranes insert and are ruptured at the margin. . The surfaces are blue-hernandez with a small amount of monahan discoloration on side A centrally and adjacent to the dividing membrane occupying approximately 10% of the surface. The vessels are arborizing with no vessels grossly crossing the dividing membrane. . The maternal surface is presumably complete with no lesion or adherent hemorrhage identified. Sectioning reveals a red, spongy cut surface with no discoloration or lesions identified. . [employer] sections are submitted as follows: A1: Dividing membrane with insertion. A2: Membrane roll A. A3: Cord A. A4: Membrane roll B. A5: Cord B. A6: surface discoloration side A. A7: Full-thickness central side A. A8-A9: Central full-thickness side B. ([id number]) /MRV 12/22/2024 1215 Local . 01 Pathologist provided ICD-10: Z38.30 . 01 CPT . 418177 Specimen Comment: A courtesy copy of this report has been sent to [facility]ology Performed at: [address] [address], [place], [place] [id number] MD Farhad Jorge MD Phone: [phone]
[2024-12-21] MEDS: ACETAMINOPHEN 325 MG TABLET 650 MG PO ×2 (16:18→23:08)
[2024-12-21] MEDS: DERMOPLAST SPRAY 20% 60 ML 1 SPRAY TOP (16:18)
[2024-12-21] MEDS: IBUPROFEN 600 MG TABLET PO (19:28)
[2024-12-22] MEDS: IBUPROFEN 600 MG TABLET PO ×3 (02:02→15:12)
[2024-12-22] MEDS: ACETAMINOPHEN 325 MG TABLET 650 MG PO ×2 (04:57→15:12)
[2024-12-22 06:42] LABS: Hematocrit 29.3 % (36-46); Hemoglobin 10.0 g/dL (12.0-16.0)
--- NOTE | 2024-12-22 08:08 | P.DS_ITS ---
Discharge Providers Provider Date of admission: 12/21/24 05:43 Discharge Date: 12/22/24 Primary care physician: CHRISTINE Araujo Consults: 12/21/24 07:03 Consult to Anesthesiology Urgent Comment: Consulting Provider: Anesthesiologist Reason for consultation: Epidural 12/21/24 15:37 Consult to Human Resources Records Clerk Routine Comment: Discharge provider: María Elena Singh MD Summary Hospital Course Date Patient Seen: 12/22/24 Time Patient Seen: 07:30 Diagnoses: s/p of twin female neonates (presumed mono/di) Hospital Course: 29yo at 37w1d with mono/di TIUP admitted for scheduled IOL at term per [facility] recommendations. Pt underwent augmentation of latent labor (SVE 70/-3 on admission) with IV pitocin and was treated with IV abx for +GBS. AROM was performed following adequate antibiosis with subsequent rapid progression to full dilation. Pt was taken to OR for delivery and had an uncomplicated vaginal delivery (twin A vertex, internal pedalic version of twin B delivered footling breech). Pt had a subsequently uncomplicated course and requested expedited discharge to home on POD1. EBL wnl at time of delivery, h/h on PPD1 without significant decrease and pt discharged to home with instructions to continue PO iron supplementation. Routine precautions reviewed, exclusively, plan for LNG-IUD at time of visit Peripartum Data Delivery Method: Natural Vaginal Laceration Description: None Episiotomy description: None Procedures: internal pedalic version of second twin complications: none 1: Gender: Female Disposition of : home 2: Gender: Female Disposition of : home Discharge Diagnosis (1) Encounter for vaginal delivery: Start Date: 12/21/24 Start Time: 07:30 Status: Acute Status at Discharge Cognitive/behavioral status at discharge: oriented Functional status at discharge: independent ambulation Overall status at discharge: patient is back to baseline Time Spent with Patient Time attestation: Total time spent providing and/or coordinating discharge services: Time spent: Less than 30 minutes Objective Labs 12/22/24 06:10 Labs: Laboratory Results - last 24 hr 12/22/24 06:10 Hgb 10.0 L Hct 29.3 L Exam Vital Signs (past 8 hours): maternal VSS/afebrile and wnl, reviewed in OBIX Const General: cooperative, healthy appearing, comfortable and well developed Nutritional Appearance: overweight Orientation: alert, awake and oriented x3 Limitations: mental status not altered Resp Effort & Inspection: normal respiratory effort and able to speak in complete sentences Cardio Pulses: normal peripheral pulses GI Inspection: normal to inspection Palpation: soft Other: fundus firm << umb Other: deferred, pt states lochia is lessening Skin General: no rashes or lesions noted Neuro General: patient alert, patient awake and patient oriented x3 Extrem General: normal to inspection Psych Mental Status: mental status grossly normal Judgment: judgment good Discharge Plan Discharge Plan Patient Disposition: Home Provider Discharge Comment: Nothing in the vagina for 4 weeks. No tampons, intercourse, douching, swimming in fresh water/pools/hot tubs. Tub baths are ok after 2 weeks if the tub is cleaned well first. Discharge orders & Medications Prescriptions: New ibuprofen 600 mg Tablet 600 mg PO Q6H Qty: 60 0RF Continued ascorbic acid (vitamin C) 500 mg tablet 500 mg PO DAILY Qty: 30 0RF ferrous gluconate [Ferate] 240 mg (27 mg iron) tablet 240 mg PO DAILY Qty: 60 0RF Discontinued aspirin 81 mg tablet,chewable 162 mg PO DAILY Qty: 90 3RF [id number] oil 400 mcg-35 mg -25 mg-5 mg tablet,chewable 1 tab PO DAILY Follow up/Referrals: Link Qureshi ARNP [Primary Care Provider, Nursing] Diet/Activity/Treatments Diet: Diet as Tolerated and Regular Skin/Wound/Dressing Care Report to your healthcare provider any signs of infection, such as:: chills, fever, increased pain and unusual drainage Visit Report/Discharge Packet Stand Alone Forms: Patient Portal/API, Stroke Signs & Symptoms Discharge Data Primary Care Provider: Link Qureshi
[2024-12-22 16:53] VITALS: BP 112/73; PULSE 81; RESP 16; TEMP 36.1
[2024-12-22] MEDS: RHO(D) IMMUNE GLOBULIN 1,500 UNIT SYRINGE 1500 UNIT IM (17:31)
== END 2024-12-22 17:35 | disposition home or self-care (01) | DRG 807 ==
PROVIDERS: Admitting Provider Obstetrics & Gynecology; PCP Nurse Practitioner Family; Referring Provider Obstetrics & Gynecology; Visit Provider Obstetrics & Gynecology
DX: O30.033 Twin pregnancy, monochorionic/diamniotic, third trimester (principal); Z37.2 Twins, both liveborn; Z3A.37 37 weeks gestation of pregnancy; Z67.41 Type O blood, Rh negative; O99.824 Streptococcus B carrier state complicating childbirth
CPT/HCPCS: 36415; 59050; 76815; 85014; 85018; 85025; 86850; 86900; 86901; G0379; J0290; J2590; J2790; S0191